=== PATIENT | female | born 1955 | race Asian ===

== ENCOUNTER 2019-08-04 11:24 | Observation (INO) | payer OTHER ==
--- NOTE | 2019-08-04 11:43 | RADIOLOGY REPORT (SQ) ---
EXAM DESCRIPTION: CT HEAD WITHOUT COMPLETED DATE/TIME: 08/04/2019 11:34 am REASON FOR STUDY: stroke like symptoms COMPARISON: None. TECHNIQUE: Axial images acquired through the brain without intravenous contrast. Images reviewed wi th bone, brain and subdural windows. Additional sagittal and coronal reconstructions were generated. Images stored on PACS. All CT scanners at this facility use dose modulation, iterative reconstruction, and/or weight based d osing when appropriate to reduce radiation dose to as low as reasonably achievable (ALARA). [facility]: Dose Right [facility]: CareDose [facility]: Dose Right [facility]: Teradose 4D [facility]: Smart Technologies LIMITATIONS: None. FINDINGS: There is no acute intracranial hemorrhage, vascular territorial infarct, extra-axial fluid collection, mass effect or midline shift. There is no effacement of the cerebral sulci or basal sub arachnoid cisterns. The helm-white matter differentiation is preserved. The caliber the ventricles is concordant with the degree of sulcation. There is no abnormality of the orbits and globes. The paranasal sinuses are clear. There is no frac ture of the calvarium. IMPRESSION: No acute intracranial abnormality. If concern for acute CVA persists correlation with M RI is recommended. EVIDENCE OF ACUTE STROKE: NO. COMMENT: Quality ID # [id number]: Final reports with documentation of one or more dose reduction techniques (e.g., Automated exposure control, adjustment of the mA and/or kV according to patient size, use of iterative reconstruction technique) TECHNICAL DOCUMENTATION: JOB ID: [id number] [employer]- All Rights Reserved Reading location - IP/workstation name: [email or web address]
--- NOTE | 2019-08-04 11:45 | ER Document Report ---
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 No LOC, no c/o weakness/numbness. EMS transported pt. here as stroke alert - Related Data Allergies/Adverse Reactions: No Known Allergies Allergy (Verified 08/04/19 12:21) Past Medical History - General Information source: Patient, Emergency Med Personnel - Social History Smoking Status: Unknown if Ever Smoked Family History: None Review of Systems - Review of Systems Constitutional: No symptoms reported EENT: No symptoms reported Cardiovascular: No symptoms reported Respiratory: No symptoms reported Gastrointestinal: No symptoms reported Musculoskeletal: No symptoms reported Neurological/Psychological: See HPI, Confusion, Other - memory loss Physical Exam - General General appearance: Appears well In distress: None - HEENT Head: Normocephalic Pupils: PERRL Pharynx: Normal Neck: Normal - Respiratory Respiratory status: No respiratory distress Breath sounds: Normal - Cardiovascular Rhythm: Regular Heart sounds: Normal auscultation Murmur: No - Abdominal Inspection: Normal Bowel sounds: Normal Tenderness: Nontender - Extremities General upper extremity: Normal inspection General lower extremity: Normal inspection - Neurological Neuro grossly intact: Yes Cognition: Short term memory loss - pt knows her name and where she is but doesn't know the date. Also knows her but not her age or who the president is. 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 Delvalle (neurology at [facility] and he feels pt. is more likely transient global amnesia and is not a TPA candidate. I will call the hospitalist for admission 08/04/19 13:39 [address] Esqueda and he will see pt. in ED - Laboratory Result Diagrams: 08/04/19 11:57 08/04/19 11:57 - Diagnostic Test Radiology reviewed: Reports reviewed - CT head, CXR- neg - EKG Interpretation by Me EKG shows normal: Sinus rhythm Rate: Normal Rhythm: NSR - nsr without acute change - Consults estrella esqueda Time consulted: 13:39 Consulted provider: will come to ER Critical Care Note - Critical Care Note Total time excluding time spent on procedures (mins): 30 ED NIH Stroke Scale - NIH Stroke Scale *: 1. NIH scale should be completed with appropriate accompanying assessment tools. *: 2. The NIH should reflect what the patient is capable of doing and should not be coached by the clinician. 1a. Level of Consciousness: 0=Alert;keenly responsive -: 1=Drowsy -: 2=Obtunded -: 3=Coma/unresponsive or reflex to noxious stimuli. 1b. Orientation Questions: a. What month is it? -: b. How old are you? -: 0=Answers both questions correctly. -: 1=Answers one question correctly or patient is intubated or has orotracheal trauma. -: 2=Answers neither question correctly. 1c. Response to commands: a. Open and close eyes? -: b. 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 -: Credit is given despite weakness. Demonstration of task is permitted. Substitute command if hands cannot be used. -: 0=Performs both tasks correctly -: 1=Performs one task correctly -: 2=Performs neither task correctly 2. Gaze: Establish eye contact and instruct patient to "Follow my finger" -: 0=Normal -: 1=Partial gaze palsy. Gaze is abnormal in one or both eyes, but where forced deviation or total gaze paresis is not present. -: 2=Forced deviation or total gaze paresis. 3. Visual Akers: Sees fingers in all four quadrants. -: 0=No visual loss. -: 1=Partial hemianopsia. -: 2=Complete hemianopsia. -: 3=Bilateral hemianopsia (including Cortical blindness) 4. Facial Movement: Instruct patient to: -: a. Show me your teeth -: b. Raise your eyebrows -: c. Close your eyes -: d. Smile -: 0=Normal symmetrical movement -: 1=Minor paralysis (flattened nasolabial fold, asymmetry on smiling). -: 2=Partial paralysis (total or near total paralysis of lower face). -: 3=Complete paralysis of upper and lower face 5. Motor functions (left arm): Alternate sides and extend each arm with palms down (90 degrees if sitting or 45 degrees for supine). -: 0=No drift;limb holds for full 10 seconds. -: 1=Drift; limb holds but drifts down before full 10 seconds, but does not hit bed. -: 2=Some effort against gravity; limb cannot get to or maintain position. -: 3=No effort against gravity; limb falls. -: 4=No movement. -: UN=Amputation, joint fusion, explain in comments. 5. Motor Functions (right arm): Alternate sides and extend each arm with palms down (90 degrees if sitting or 45 degrees for supine). -: 0=No drift;limb holds for full 10 seconds. -: 1=Drift; limb holds but drifts down before full 10 seconds, but does not hit bed. -: 2=Some effort against gravity; limb cannot get to or maintain position. -: 3=No effort against gravity; limb falls. -: 4=No movement. -: UN=Amputation, joint fusion, explain in comments. 6. Motor Functions (left leg): With patient lying supine, alternate sides and extend each leg (30 degrees always while supine). -: 0=No drift, leg holds position for full 5 seconds -: 1=Drift; leg falls before full 5 seconds but does not hit bed. -: 2=Some effort against gravity, leg falls to bed but some effort against gravity. -: 3=No effort against gravity, leg falls to bed immediately. -: 4=No movement. -: UN=Amputation, joint fusion; explain in comments. 6. Motor Functions (right leg): With patient lying supine, alternate sides and extend each leg (30 degrees always while supine). -: 0=No drift, leg holds position for full 5 seconds -: 1=Drift; leg falls before full 5 seconds but does not hit bed. -: 2=Some effort against gravity, leg falls to bed but some effort against gravity. -: 3=No effort against gravity, leg falls to bed immediately. -: 4=No movement. -: UN=Amputation, joint fusion; explain in comments. 7. Limb Ataxia: With eyes open instruct patient to: -: a. "Touch your finger to your nose". -: b. "Touch your heel to your altman" -: 0=Absent -: 1=Present in one limb. -: 2=Present in two limbs. -: UN=Amputation or joint fusion; explain in comments. 8. Sensory: Test sensation using pinprick or noxious stimuli. Test as many body parts as possible. -: 0=Normal;no sensory loss -: 1=Mile to moderate sensory loss (patient feels pin prick but is less sharp on affected side). -: 2=Severe or total sensory loss. 9. Best Language: Instruct patient to: -: a. "Describe what you see in this picture." -: b. "Name the items in this picture." -: c. "Read these sentences." -: 0=No aphasia, normal -: 1=Mild to moderate aphasia. -: 2=Severe aphasia -: 3=Mute, global aphasia, no usable speech or auditory comprehension. 10. Articulation, Dysarthia: Instruct patient to: -: "Read these words" or "Repeat these words" -: 0=Normal -: 1=Mild to moderate; patient may slur some words but can be understood without difficulty. -: 2=Severe; patients speech so slurred as to be unintelligible in the absence of dysphasia. -: UN=Intubated or other physical barrier, explain in comments. 11. Extinction or inattention: 0=No abnormality -: 1= Visual, tactile, auditory, spatial, or personal inattention or extinction to bilateral simulation in one or the sensory modalities. -: 2=Profound coral-inattention or coral-inattention to more than one modality; does not recognize own hand. Notes: total stroke score is 2 Discharge - Discharge Clinical Impression: Transient global amnesia Condition: Fair Disposition: ADMITTED OBSERVATION Admitting Provider: Karl (Hospitalist) Unit Admitted: Medical Floor
[2019-08-04] MEDS ORDERED: CLONIDINE HCL 0.2 MG TABLET PO ONE (11:52)
--- NOTE | 2019-08-04 12:01 | RADIOLOGY REPORT (SQ) ---
EXAM DESCRIPTION: CHEST SINGLE VIEW COMPLETED DATE/TIME: 08/04/2019 11:46 am REASON FOR STUDY: stroke like symptoms COMPARISON: None. EXAM PARAMETERS: NUMBER OF VIEWS: One view. TECHNIQUE: Single frontal radiographic view of the chest acquired. RADIATION DOSE: NA LIMITATIONS: None. FINDINGS: LUNGS AND PLEURA: No consolidation, pleural effusion or pneumothorax. MEDIASTINUM AND HILAR STRUCTURES: No mediastinal or hilar contour abnormality. HEART AND VASCULAR STRUCTURES: The cardiac silhouette and pulmonary vasculature are within normal cespedes its. BONES: No acute findings. HARDWARE: None in the chest. OTHER: No other finding. IMPRESSION: No acute cardiopulmonary process. TECHNICAL DOCUMENTATION: JOB ID: [id number] [employer]- All Rights Reserved Reading location - IP/workstation name: [email or web address]
[2019-08-04 12:34] LABS: INTERNATIONAL RATION (INR) 0.92; PROTHROMBIN TIME 12.3 SEC (11.4-15.4)
[2019-08-04 12:35] LABS: PARTIAL THROMBOPLASTIN TIME 31.7 SEC (23.5-35.8)
[2019-08-04 12:39] LABS: ABSOLUTE LYMPHOCYTES (AUTO) 1.4 10^3/uL (0.5-4.7); ABSOLUTE MONOCYTES (AUTO) 0.3 10^3/uL (0.1-1.4); ABSOLUTE NEUT (AUTO) 3.7 10^3/uL (1.7-8.2); BASOPHILS % (AUTO) 0.4 % (0-2); EOSINOPHILS % (AUTO) 0.3 % (0-6); HEMOGLOBIN 13.1 g/dL (12.0-15.5); LYMPHOCYTES % (AUTO) 25.8 % (13-45); MEAN CORPUSCULAR HEMOGLOBIN 31.5 pg (27.0-33.4); MEAN CORPUSCULAR HGB CONC 33.6 g/dL (32.0-36.0); MEAN CORPUSCULAR VOLUME 94 fl (80-97); MONOCYTES % (AUTO) 5.9 % (3-13); PLATELET COUNT 291 10^3/uL (150-450); RED BLOOD COUNT 4.17 10^6/uL (3.72-5.28); RED CELL DISTRIBUTION WIDTH 12.4 % (11.5-14.0); SEGMENTED NEUTROPHILS % (AUTO) 67.6 % (42-78); TOTAL CELLS COUNTED % (AUTO) 100 %; WHITE BLOOD COUNT 5.4 10^3/uL (4.0-10.5)
[2019-08-04 13:16] LABS: ALBUMIN 4.4 g/dL (3.5-5.0); ALKALINE PHOSPHATASE 88 U/L (38-126); ANION GAP 12 (5-19); ASPARTATE AMINO TRANSFERASE 32 U/L (14-36); BILIRUBIN,DIRECT 0.2 mg/dL (0.0-0.4); BILIRUBIN,TOTAL 0.7 mg/dL (0.2-1.3); BLOOD UREA NITROGEN 15 mg/dL (7-20); CALCIUM 10.2 mg/dL (8.4-10.2); CARBON DIOXIDE 25 mmol/L (22-30); CHLORIDE 105 mmol/L (98-107); CREATINE KINASE 181 U/L (30-135); GLUCOSE 92 mg/dL (75-110); POTASSIUM 3.6 mmol/L (3.6-5.0); TOTAL PROTEIN 7.8 g/dL (6.3-8.2)
[2019-08-04 13:28] LABS: CREATINE KINASE MB 1.65 ng/mL (<4.55)
[2019-08-04 13:32] LABS: TROPONIN I < 0.012 ng/mL
[2019-08-04] MEDS ORDERED: IBUPROFEN 800 MG TABLET PO PRN (14:15)
--- NOTE | 2019-08-04 14:41 | PDOC H&P ---
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 She became disoriented and could not remember anything. The history that I have is obtained from what her daughter knows of what happened and what I was told from the ER provider because the patient has no memory of what happened. She does not remember anything from this morning. She does not remember how she got to the hospital. She did know that she was in the hospital and that she is in [place]. She did not have 5-minute recall. When asked who the current president was, she said Hardik Peralta. Her daughter said that she has had 2 episodes before, once before many years ago in the [facility] with a negative hospital work-up, and 1 5 years ago in [facility] that lasted for couple hours and she did not seek medical attention at that time. Her blood pressure was a little bit elevated but she h ad no focal neurological deficits, her memory loss being the only acute issues she seems to have. She is being admitted for further evaluation. Past Medical History Cardiac Medical History: Reports: Hypertension Social History Smoking Status: Unknown if Ever Smoked Electronic Cigarette use?: No Family History Family History: None Parental Family History Reviewed: Yes - Hypertension Children Family History Reviewed: Yes - None Sibling(s) Family History Reviewed.: Unknown Medication/Allergy Home Medications: Lisinopril 20 mg PO DAILY 08/04/19 Lovastatin [Altoprev] 20 mg PO QHS 08/04/19 Allergies/Adverse Reactions: No Known Allergies Allergy (Verified 08/04/19 12:21) Review of Systems All systems: reviewed and no additional remarkable complaints except as stated - All systems were reviewed and were negative except as noted in the HPI, but given her amnesia I do not think this is entirely reliable Physical Exam Vital Signs: Temp Pulse Resp BP Pulse Ox 98.6 F 76 12 113/77 98 08/04/19 12:29 08/04/19 11:27 08/04/19 13:45 08/04/19 13:45 08/04/19 13:45 Intake & Output 08/03/19 08/04/19 08/05/19 06:59 06:59 06:59 Weight 48.6 kg General appearance: PRESENT: no acute distress, cooperative, well-developed, well-nourished Head exam: PRESENT: atraumatic, normocephalic Eye exam: PRESENT: EOMI, PERRLA. ABSENT: conjunctival injection, nystagmus, scleral icterus Ear exam: PRESENT: normal external ear exam Mouth exam: PRESENT: moist, neck supple Throat exam: ABSENT: post pharyngeal erythema Neck exam: PRESENT: full ROM. ABSENT: carotid bruit, JVD, lymphadenopathy, meni ngismus, tenderness, thyromegaly Respiratory exam: PRESENT: clear to auscultation ekaterina, symmetrical, unlabored. ABSENT: accessory muscle use, chest wall tenderness, crackles, prolonged expiratory phas, rhonchi, tachypnea, wheezes Cardiovascular exam: PRESENT: RRR, +S1, +S2 Pulses: PRESENT: normal carotid pulses Vascular exam: PRESENT: normal capillary refill GI/Abdominal exam: PRESENT: normal bowel sounds, soft. ABSENT: distended, guarding, rebound, tenderness Extremities exam: ABSENT: clubbing, pedal edema Musculoskeletal exam: PRESENT: ambulatory, normal inspection. ABSENT: deformity Neurological exam: PRESENT: alert, awake, oriented to person, oriented to place, CN II-XII grossly intact. ABSENT: oriented to time, oriented to situation, motor sensory deficit Psychiatric exam: PRESENT: appropriate affect, normal mood Skin exam: PRESENT: dry, warm Results Laboratory Results: 08/04/19 11:57 08/04/19 11:57 08/04/19 08/04/19 11:57 11:57 WBC 5.4 RBC 4.17 Hgb 13.1 Hct 39.0 MCV 94 MCH 31.5 MCHC 33.6 RDW 12.4 Plt Count 291 Seg Neutrophils % 67.6 Sodium 141.6 Potassium 3.6 Chloride 105 Carbon Dioxide 25 Anion Gap 12 BUN 15 Creatinine 0.84 Est GFR ( Amer) > 60 Glucose 92 Calcium 10.2 Total Bilirubin 0.7 AST 32 Alkaline Phosphatase 88 Total Protein 7.8 Albumin 4.4 08/04/19 08/04/19 11:57 11:57 Creatine Kinase 181 H CK-MB (CK-2) 1.65 Troponin I < 0.012 Impressions: Chest X-Ray 08/04/19 11:26 IMPRESSION: No acute cardiopulmonary process. Head CT 08/04/19 11:26 IMPRESSION: No acute intracranial abnormality. If concern for acute CVA persists correlation with MRI is recommended. EVIDENCE OF ACUTE STROKE: NO. Assessment and Plan - Diagnosis (1) Transient global amnesia Is this a current diagnosis for this admission?: Yes Plan: She has anterograde and some retrograde amnesia. She has had multiple prior episodes. She does not have a history of migraines but does complain of a headache with this particular episode. She has no history of seizures. Head CT was negative. We will get an MRI to exclude other pathologies. (2) Hypertension Qualifiers: Hypertension type: essential hypertension Qualified Code(s): I10 - Essential (primary) hypertension Is this a current diagnosis for this admission?: Yes Plan: Continue lisinopril (3) Hyperlipidemia Qualifiers: Hyperlipidemia type: unspecified Qualified Code(s): E78.5 - Hyperlipidemia, unspecified Is this a current diagnosis for this admission?: Yes Plan: Continue lovastatin - Time Time Spent with patient: 35 or more minutes
--- NOTE | 2019-08-04 19:05 | EKG REPORT ---
SEVERITY:- BORDERLINE ECG - SINUS RHYTHM BORDERLINE PROLONGED QT INTERVAL : Confirmed by: Amy Vazquez MD 04-Aug-2019 19:05:21
[2019-08-04 20:52] LABS: APPEARANCE,URINE CLEAR; BILIRUBIN,URINE NEGATIVE (NEGATIVE); COLOR,URINE STRAW; GLUCOSE, URINE NEGATIVE (NEGATIVE); KETONES,URINE TRACE mg/dL (NEGATIVE); PROTEIN,URINE NEGATIVE (NEGATIVE); URINE SPECIFIC GRAVITY 1.005; UROBILINOGEN,URINE NEGATIVE mg/dL (<2.0)
[2019-08-04] MEDS ORDERED: ATORVASTATIN CALCIUM 10 MG TABLET PO SCH (22:00)
[2019-08-04] MEDS ORDERED: (PENDING PHARMACY ID) (Lovastatin [Altoprev] 20 MG) PO SCH (22:00)
--- NOTE | 2019-08-05 01:40 | RADIOLOGY REPORT (SQ) ---
EXAM DESCRIPTION: RadLex: MR BRAIN WITHOUT IV CONTRAST CLINICAL HISTORY: 64 years Female; amnesia TECHNIQUE: Routine noncontrast MRI brain protocol COMPARISON: CT 08/04/2019 FINDINGS: No diffusion restriction. [place] matter, white matter, ventricles, and cisterns are normal. No midline shift or mass-effect. No hemosiderin deposition. Calvarial marrow is normal. Paranasal sinuses and mastoid air cells are clear. Normal flow-voids are seen in the major intracranial arteries. IMPRESSION: 1. Normal noncontrast MRI of the brain.
[2019-08-05 08:48] VITALS: BP 132/77
[2019-08-05] MEDS ORDERED: LISINOPRIL 10 MG TABLET PO SCH (10:00)
[2019-08-05] MEDS ORDERED: (PENDING PHARMACY ID) (Lisinopril [Lisinopril] 20 MG) PO SCH (10:00)
--- NOTE | 2019-08-05 15:51 | PDOC DISCHARGE SUMMARY ---
Impression - Admit/DC Date/PCP Admission Date/Primary Care Provider: 08/04/19 13:56 Discharge Date: 08/05/19 - Discharge Diagnosis (1) Transient global amnesia Is this a current diagnosis for this admission?: Yes (2) Hypertension Is this a current diagnosis for this admission?: Yes (3) Hyperlipidemia Is this a current diagnosis for this admission?: Yes - Additional Information Resuscitation Status: Full Code Discharge Diet: Cardiac Discharge Activity: Activity As Tolerated Referrals: [facility] [Provider Group] Home Medications: Lisinopril 20 mg PO DAILY 08/04/19 Lovastatin [Altoprev] 20 mg PO QHS 08/04/19 History of Present Illiness History of Present Illness: JORDI UMAÑA is a 64 year old female with a history of hypertension who also takes her cholesterol medication and 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 She became disoriented and could not remember anything. The history that I have is obtained from what her daughter knows of what happened and what I was told from the ER provider because the patient has no memory of what happened. She does not remember anything from this morning. She does not remember how she got to the hospital. She did know that she was in the hospital and that she is in [place]. She did not have 5-minute recall. When asked who the current president was, she said Hardik Peralta. Her daughter said that she has had 2 episodes before, once before many years ago in the [facility] with a negative hospital work-up, and 1 5 years ago in [facility] that lasted for couple hours and she did not seek medical attention at that time. Her blood pressure was a little bit elevated but she had no focal neurological deficits, her memory loss being the only acute issues she seems to have. She is being admitted for further evaluation. Hospital Course Hospital Course: Her MRI was negative. Her memory returned back to normal. She was able to answer questions and recall events that she could not do yesterday. She will continue on her home medications. I encouraged her to really think back about this episode and prior episodes that have happened to see if there was a particular trigger, so that she might be able to avoid future episodes. She verbalized her understanding. Her daughter and son-in-law were in the room with her area her labs and examination were reassuring and she was discharged in good condition. Physical Exam Vital Signs: Temp Pulse Resp BP Pulse Ox 98.0 F 62 16 132/77 H 99 08/05/19 08:47 08/05/19 08:47 08/05/19 08:47 08/05/19 08:47 08/05/19 08:47 Intake & Output 08/04/19 08/05/19 08/06/19 06:59 06:59 06:59 Weight 40.8 kg General appearance: PRESENT: no acute distress, cooperative, thin Respiratory exam: PRESENT: clear to auscultation ekaterina, symmetrical, unlabored. ABSENT: accessory muscle use, chest wall tenderness, crackles, prolonged expiratory phas, rhonchi, tachypnea, wheezes Cardiovascular exam: PRESENT: RRR, +S1, +S2 Pulses: PRESENT: normal carotid pulses Vascular exam: PRESENT: normal capillary refill GI/Abdominal exam: PRESENT: normal bowel sounds, soft. ABSENT: distended, guarding, rebound, tenderness Extremities exam: ABSENT: clubbing, pedal edema Musculoskeletal exam: PRESENT: normal inspection. ABSENT: deformity Neurological exam: PRESENT: alert, awake, oriented to person, oriented to place, oriented to time, oriented to situation Psychiatric exam: PRESENT: appropriate affect, normal mood Skin exam: PRESENT: dry, warm Results Laboratory Results: WBC 5.4 10^3/uL (4.0-10.5) 08/04/19 11:57 RBC 4.17 10^6/uL (3.72-5.28) 08/04/19 11:57 Hgb 13.1 g/dL (12.0-15.5) 08/04/19 11:57 Hct 39.0 % (36.0-47.0) 08/04/19 11:57 MCV 94 fl (80-97) 08/04/19 11:57 MCH 31.5 pg (27.0-33.4) 08/04/19 11:57 MCHC 33.6 g/dL (32.0-36.0) 08/04/19 11:57 RDW 12.4 % (11.5-14.0) 08/04/19 11:57 Plt Count 291 10^3/uL (150-450) 08/04/19 11:57 Lymph % (Auto) 25.8 % (13-45) 08/04/19 11:57 [place] % (Auto) 5.9 % (3-13) 08/04/19 11:57 Eos % (Auto) 0.3 % (0-6) 08/04/19 11:57 Baso % (Auto) 0.4 % (0-2) 08/04/19 11:57 Absolute Neuts (auto) 3.7 10^3/uL (1.7-8.2) 08/04/19 11:57 Absolute Lymphs (auto) 1.4 10^3/uL (0.5-4.7) 08/04/19 11:57 Absolute Monos (auto) 0.3 10^3/uL (0.1-1.4) 08/04/19 11:57 Absolute Eos (auto) 0.0 10^3/uL (0.0-0.6) 08/04/19 11:57 Absolute Basos (auto) 0.0 10^3/uL (0.0-0.2) 08/04/19 11:57 Seg Neutrophils % 67.6 % (42-78) 08/04/19 11:57 PT 12.3 SEC (11.4-15.4) 08/04/19 11:57 INR 0.92 08/04/19 11:57 APTT 31.7 SEC (23.5-35.8) 08/04/19 11:57 Sodium 141.6 mmol/L (137-145) 08/04/19 11:57 Potassium 3.6 mmol/L (3.6-5.0) 08/04/19 11:57 Chloride 105 mmol/L (98-107) 08/04/19 11:57 Carbon Dioxide 25 mmol/L (22-30) 08/04/19 11:57 Anion Gap 12 (5-19) 08/04/19 11:57 BUN 15 mg/dL (7-20) 08/04/19 11:57 Creatinine 0.84 mg/dL (0.52-1.25) 08/04/19 11:57 Est GFR ( Amer) > 60 (>60) 08/04/19 11:57 Est GFR (MDRD) Non-Af > 60 (>60) 08/04/19 11:57 Glucose 92 mg/dL (75-110) 08/04/19 11:57 Calcium 10.2 mg/dL (8.4-10.2) 08/04/19 11:57 Total Bilirubin 0.7 mg/dL (0.2-1.3) 08/04/19 11:57 Direct Bilirubin 0.2 mg/dL (0.0-0.4) 08/04/19 11:57 Neonat Total Bilirubin Not Reportable 08/04/19 11:57 Neonat Direct Bilirubin Not Reportable 08/04/19 11:57 Neonat Indirect Bili Not Reportable 08/04/19 11:57 AST 32 U/L (14-36) 08/04/19 11:57 ALT 18 U/L (<35) 08/04/19 11:57 Alkaline Phosphatase 88 U/L (38-126) 08/04/19 11:57 Creatine Kinase 181 U/L (30-135) H 08/04/19 11:57 CK-MB (CK-2) 1.65 ng/mL (<4.55) 08/04/19 11:57 Troponin I < 0.012 ng/mL 08/04/19 11:57 Total Protein 7.8 g/dL (6.3-8.2) 08/04/19 11:57 Albumin 4.4 g/dL (3.5-5.0) 08/04/19 11:57 Urine Color STRAW 08/04/19 12:55 Urine Appearance CLEAR 08/04/19 12:55 Urine pH 8.0 (5.0-9.0) 08/04/19 12:55 Ur Specific [place] 1.005 08/04/19 12:55 Urine Protein NEGATIVE mg/dL (NEGATIVE) 08/04/19 12:55 Urine Glucose (UA) NEGATIVE mg/dL (NEGATIVE) 08/04/19 12:55 Urine Ketones TRACE mg/dL (NEGATIVE) H 08/04/19 12:55 Urine Blood NEGATIVE (NEGATIVE) 08/04/19 12:55 Urine Nitrite (Reflex) NEGATIVE (NEGATIVE) 08/04/19 12:55 Urine Bilirubin NEGATIVE (NEGATIVE) 08/04/19 12:55 Urine Urobilinogen NEGATIVE mg/dL (<2.0) 08/04/19 12:55 Leukocyte Esterase Rfl NEGATIVE (NEGATIVE) 08/04/19 12:55 Urine RBC (Auto) 0 /HPF 08/04/19 12:55 Urine WBC (Reflex) < 1 /HPF 08/04/19 12:55 Urine Mucus (Auto) RARE /LPF 08/04/19 12:55 Urine Ascorbic Acid NEGATIVE (NEGATIVE) 08/04/19 12:55 08/04/19 11:57 CK-MB (CK-2) 1.65 Troponin I < 0.012 Impressions: Head MRI 08/04/19 00:00 IMPRESSION: 1. Normal noncontrast MRI of the brain. Chest X-Ray 08/04/19 11:26 IMPRESSION: No acute cardiopulmonary process. Head CT 08/04/19 11:26 IMPRESSION: No acute intracranial abnormality. If concern for acute CVA persists correlation with MRI is recommended. EVIDENCE OF ACUTE STROKE: NO. Plan Time Spent: Greater than 30 Minutes Stroke Is this a Stroke Patient?: No Acute Heart Failure - Is this a Heart Failure Patient?: No
== END 2019-08-05 09:12 | disposition home or self-care (01) ==
LOC: ER 11:24 → EH 13:56 → 3N 16:05
PROVIDERS: ADMIT Family Medicine; ATTEND Family Medicine
DX: G45.4 Transient global amnesia (principal); I10 Essential (primary) hypertension; E78.5 Hyperlipidemia, unspecified; Z79.899 Other long term (current) drug therapy; Z82.49 Family history of ischemic heart disease and other diseases of the circulatory system
CPT/HCPCS: 93005; 99285; 36415; 82553; 82550; 85025; 85610; 85730; 80053; 81001; 84484; 70551; 71045; 70450; 93010; G0378 ×3

== ENCOUNTER 2020-04-05 11:15 | Emergency (ER) | payer MEDICARE, OTHER ==
--- NOTE | 2020-04-05 14:18 | ER Document Report ---
ED General - General Chief Complaint: Abdominal Pain Stated Complaint: ABDOMINAL PAIN,DIARRHEA Time Seen by Provider: 04/05/20 14:17 Mode of Arrival: Ambulatory Information source: Patient Notes: 04/05/20 12:24 - ED Nursing Note by ROCHELLE DEL TORO Num: [id number] : 1955 Patient Age: 65 patient aaox4, complains of abdominal discomfort and unable to have a bowel movement. patient states she feels nausea but thinks its because she cant have a bowel movement. patient states she gets constipation frequently, states this feels similar to this. patient states she had a hard bowel movement yesterday morning and then it turned to loose. patient breaths e/u, nad my notes 65-year-old female arrives with chief complaint of having a hard stool yesterday and then soft stool afterwards today. Every time she does have a bowel movement it feels painful when she attempts to defecate. She had some mild blood on her stool when she defecated yesterday as well. I was accompanied by female nursing staff while I did a rectal exam with some mild tenderness as well. A KUB that was done prior to my rectal exam reveals firm stool in her ascending vault but also what appears to be soft stool and the descending colon. She was written for lactulose and Cytotec and advised to apply Polysporin to the rectum. Also advised her to eat some applesauce to keep stools non-firm. TRAVEL OUTSIDE OF THE [place] IN LAST 30 DAYS: No - HPI Onset: Yesterday Onset/Duration: Sudden Quality of pain: Achy Severity: Mild Pain Level: 1 Associated symptoms: None Exacerbated by: Denies Relieved by: Denies Similar symptoms previously: No Recently seen / treated by doctor: No - Related Data Allergies/Adverse Reactions: No Known Allergies Allergy (Verified 04/05/20 12:23) Home Medications: lisinopril, aspirin, multivitamins, lovastatin Past Medical History - General Information source: Patient - Social History Smoking Status: Never Smoker Cigarette use (# per day): No Chew tobacco use (# tins/day): No Smoking Education Provided: No Frequency of alcohol use: None Drug Abuse: None Lives with: Family Family History: None, Reviewed & Not Pertinent Patient has suicidal ideation: No Patient has homicidal ideation: No - Past Medical History Cardiac Medical History: Reports: Hx Hypercholesterolemia, Hx Hypertension Past Surgical History: Reports: Hx Section Review of Systems - Review of Systems Constitutional: No symptoms reported EENT: No symptoms reported Cardiovascular: No symptoms reported Respiratory: No symptoms reported Gastrointestinal: See HPI, Other - Rectal pain on defecation Genitourinary: No symptoms reported Female Genitourinary: No symptoms reported Musculoskeletal: No symptoms reported Skin: No symptoms reported Hematologic/Lymphatic: No symptoms reported Neurological/Psychological: No symptoms reported Physical Exam - Vital signs Vitals: Temp Pulse Resp BP Pulse Ox 98.7 F 104 H 16 144/85 H 100 04/05/20 11:40 04/05/20 11:40 04/05/20 11:40 04/05/20 11:40 04/05/20 11:40 Course - Vital Signs Vital signs: Temp Pulse Resp BP Pulse Ox 98.7 F 104 H 16 144/85 H 100 04/05/20 11:40 04/05/20 11:40 04/05/20 11:40 04/05/20 11:40 04/05/20 11:40 - Diagnostic Test Radiology reviewed: Reports reviewed Critical Care Note - Critical Care Note Total time excluding time spent on procedures (mins): 60 Comments: I advised patient of x-ray findings and she appeared to understand the diagnosis and follow-up plan. Discharge - Discharge Clinical Impression: Rectal fissure Condition: Good Disposition: HOME, SELF-CARE Additional Instructions: Apply Polysporin to affected rectum on a daily basis for 1 week. ;Follow-up with personal doctor this week return to ER as needed you may see business support coordinator if symptoms persist take medicines as directed encourage fluids Prescriptions: Misoprostol [Cytotec 0.2 mg Tablet] 200 mcg PO BID 7 Days #14 tablet
[2020-04-05] MEDS ORDERED: LACTULOSE SYRUP 20 GM/30 ML UDCUP PO ONE (14:57)
[2020-04-05] MEDS ORDERED: MISOPROSTOL 0.2 MG TABLET PO ONE (14:57)
[2020-04-05] MEDS ORDERED: BACITRACIN ZINC OINTMENT 15 GM TP ONE (14:58)
--- NOTE | 2020-04-05 15:05 | RADIOLOGY REPORT (SQ) ---
EXAM DESCRIPTION: KUB/ABDOMEN (SINGLE VIEW) IMAGES COMPLETED DATE/TIME: 04/05/2020 2:42 pm REASON FOR STUDY: constipation COMPARISON: None. NUMBER OF VIEWS: One view. TECHNIQUE: Supine radiographic image of the abdomen acquired. LIMITATIONS: None. FINDINGS: BOWEL GAS PATTERN: Nonobstructive gas pattern. Moderate retained stool in the right colon . CALCIFICATIONS: No suspicious calcifications. SOFT TISSUES: No gross mass or suggestion of organomegaly. HARDWARE: None in the abdomen. BONES: No acute fracture. No worrisome bone lesions. OTHER: No other significant finding. IMPRESSION: NO RADIOGRAPHIC EVIDENCE FOR ACUTE ABDOMINAL DISEASE. TECHNICAL DOCUMENTATION: JOB ID: [id number] 2010 [employer]- All Rights Reserved Reading location - IP/workstation name: [email or web address]
[2020-04-05 15:06] LABS: APPEARANCE,URINE CLEAR; BILIRUBIN,URINE NEGATIVE (NEGATIVE); COLOR,URINE COLORLESS; GLUCOSE, URINE NEGATIVE (NEGATIVE); KETONES,URINE NEGATIVE (NEGATIVE); LEUKOCYTE ESTERASE,URINE NEGATIVE (NEGATIVE); NITRITE,URINE NEGATIVE (NEGATIVE); PROTEIN,URINE NEGATIVE (NEGATIVE); URINE SPECIFIC GRAVITY 1.002; UROBILINOGEN,URINE NEGATIVE mg/dL (<2.0)
[2020-04-05 16:02] VITALS: BP 125/73
== END 2020-04-05 16:23 | disposition home or self-care (01) ==
LOC: ER 11:15
DX: K60.2 Anal fissure, unspecified (principal); R10.9 Unspecified abdominal pain; R11.0 Nausea; K59.00 Constipation, unspecified; E78.00 Pure hypercholesterolemia, unspecified; I10 Essential (primary) hypertension
CPT/HCPCS: 99285; 81001; 74018; A9270 ×3; J3490